=== PATIENT | male | born 1995 | race American Indian/Alaskan Native ===

== ENCOUNTER 2016-12-04 09:55 | Emergency (ER) | payer MEDICAID, OTHER ==
[2016-12-04 10:44] VITALS: PULSE 69; TEMP 98.4
[2016-12-04 11:48] LABS: RBC URINE 1 /hpf (0-3); URINE BILIRUBIN NEGATIVE (NEGATIVE); URINE BLOOD NEGATIVE (NEGATIVE); URINE COLOR Yellow (YELLOW); URINE GLUCOSE (UA) NORMAL (Normal); URINE KETONE NEGATIVE (NEGATIVE); URINE LEUKOCYTE ESTERASE NEG Leu/uL (Negative); URINE PROTEIN NEGATIVE (NEGATIVE); URINE UROBILINOGEN NORMAL mg/dL (0.2-1.0); WBC URINE 1 /hpf (0-5)
[2016-12-04 12:31] VITALS: BP 126/70; RESP 19
[2016-12-04 12:32] VITALS: O2SAT 99
--- NOTE | 2016-12-04 12:32 | C.PDOC ---
History Of Present Illness 21 y/o male, whose PMHx includes ADHD, presents to the ED accompanied by mother for psychiatric evaluation. As per mother, patient had been prescribed Ritalin for his ADHD. Mother felt the dosage was too high, so patient recently received a prescription for a lower dosage of Ritalin. Mother states the new prescription is awaiting authorization and has not been processed. She reports patient has been noncompliant with his medication for the past 3 weeks and has been angry and crying more often than usual. She presents to the ED for further evaluation. Otherwise, she denies fever, chills, suicidal/homicidal ideation. Time Seen by Provider: 12/04/16 10:13 Chief Complaint (Nursing): Psychiatric Evaluation History Per: Patient, Family (mother) History/Exam Limitations: no limitations Onset/Duration Of Symptoms: Other (3 weeks ) Current Symptoms Are (Timing): Still Present Suicide/Self Injury Attempted (Context): None Modifying Factor(s): None Associated Symptoms: denies: Suicidal Thoughts, Suicidal Plan Involuntary Hold By: None Recent travel outside of the [place]: No Additional History Per: Patient, Family Past Medical History Reviewed: Historical Data, Nursing Documentation, Vital Signs Vital Signs: Last Vital Signs Temp 98.4 F 12/04/16 10:10 Pulse 69 12/04/16 12:30 Resp 19 12/04/16 12:30 BP 126/70 12/04/16 12:30 Pulse Ox 99 12/04/16 13:13 - Medical History PMH: No Chronic Diseases Other PMH: ADHD, alcohol syndrom Surgical History: No Surg Hx Family History: States: Unknown Family Hx - Social History Hx Alcohol Use: No Hx Substance Use: No Review Of Systems Except As Marked, All Systems Reviewed And Found Negative. Constitutional: Negative for: Fever, Chills Psych: Negative for: Suicidal ideation, Other (homicidal ideation) Physical Exam - Physical Exam Appears: Non-toxic, No Acute Distress Skin: Normal Color, Warm, Dry Head: Atraumatic Eye(s): bilateral: Normal Inspection Oral Mucosa: Moist Neck: Supple Chest: Symmetrical Cardiovascular: Rhythm Regular Respiratory: Normal Breath Sounds Extremity: Normal ROM, Capillary Refill (less than 2 seconds ) Neurological/Psych: Oriented x3, Normal Speech, Normal Cognition, Other (no focal deficits ) Gait: Steady ED Course And Treatment O2 Sat by Pulse Oximetry: 99 (on RA) Pulse Ox Interpretation: Normal Progress Note: UA ordered and reviewed. On reassessment, patient is resting comfortably with no apparent distress. Patient was evaluated and cleared by chemical worker who discussed case with Dr. Gonzales for discharge. Mother is advised that [facility] will follow up with them tomorrow at home. F/u pmd as scheduled. Disposition Counseled Patient/Family Regarding: Studies Performed, Diagnosis, Need For Followup - Disposition Referrals: Andrae Cook MD [Non-Staff] - Disposition: HOME/ ROUTINE Disposition Time: 12:30 Condition: STABLE Additional Instructions: [facility] worker will follow up with Rigoberto Vee tomorrow at home. If any new concerning symptoms develop return to ED. Instructions: ADHD in Adults (ED) Forms: General Discharge Instructions - Clinical Impression Clinical Impression: ADHD, alcohol syndrome - PA / FIELD RADIO TECHNICIAN / Resident Statement MD/DO has reviewed & agrees with the documentation as recorded. - Scribe Statement The provider has reviewed the documentation as recorded by the Scribe (Venice Slaughter) All medical record entries made by the Scribe were at my direction and personally dictated by me. I have reviewed the chart and agree that the record accurately reflects my personal performance of the history, physical exam, medical decision making, and the department course for this patient. I have also personally directed, reviewed, and agree with the discharge instructions and disposition.
== END 2016-12-04 12:39 | disposition home or self-care (01) ==
LOC: C.ER 09:55
DX: Q86.0 Fetal alcohol syndrome (dysmorphic) (principal); F90.9 Attention-deficit hyperactivity disorder, unspecified type